=== PATIENT | male | born 1995 | race Two or more races ===

== ENCOUNTER 2018-04-06 20:16 | Emergency (ER) | payer SELFPAY ==
[2018-04-06] MEDS ORDERED: Proparacaine 0.5% Ophth Soln 15 ML Bottle EYERT ONE (20:39)
[2018-04-06] MEDS ORDERED: Fluorescein 0.6 MG Ophth Strip EYERT ONE (20:39)
--- NOTE | 2018-04-06 20:59 | EDM.PDOC ---
ED HPI GENERAL MEDICAL PROBLEM - General Chief Complaint: Eye Problems Stated Complaint: EYE PROBLEM Time Seen by Provider: 04/06/18 20:37 Right Eye Pain Score (Numeric/FACES): 2 - Related Data Allergies Allergy/AdvReac Type Severity Reaction Status Date / Time No Known Allergies Allergy Verified 04/06/18 20:38 Home Meds: Home Meds . [No Known Home Meds] 04/06/18 [History] Past Medical History - Past Health History Medical/Surgical History: Denies Medical/Surgical History Social & Family History - Tobacco Use Smoking Status *Q: Current Every Day Smoker Years of Tobacco use: 1 Packs/Tins Daily: 1 - Caffeine Use Caffeine Use: Reports: Coffee, Energy Drinks, Soda - Recreational Drug Use Recreational Drug Use: No ED ROS GENERAL - Review of Systems Review Of Systems: See Below HEENT: Reports: Eye Pain. Denies: Eye Discharge, Glasses, Vision Change ED EXAM GENERAL W FULL EYE - Physical Exam Exam: See Below Exam Limited By: No Limitations General Appearance: Alert, WD/WN, No Apparent Distress Eye Exam: Right Eye: Normal Fundi, Bilateral Eye: EOMI, PERRL Visual Acuity (R) 20/: 20 Visual Acuity (L) 20/: 20 Eyelids: Right: Normal Appearance, Lid Everted for Exam (normal) Conjunctiva & Sclera: Right: Injected, Bilateral: Normal Appearance, Conjunctival Edema Cornea Exam: Right: Normal Appearance, Examined with Flourescein Extraocular Movements: Bilateral: Intact Pupils: Normal Accommodation Pupillary Size: Bilateral: 5 mm Pupillary Reaction: Bilateral: Brisk Anterior Chamber: Right: Normal Appearance Throat/Mouth: Normal Inspection Respiratory/Chest: Lungs Clear Cardiovascular: Regular Rate, Rhythm Neurological: Alert, Oriented Skin Exam: Warm, Dry ED EYE w/ Add Procedure - Eye Procedure Alcaine Drops Administered: Yes (2 drops with pain relief) Course - Vital Signs Text/Narrative:: 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 This happened about 6:30 tonight. Patient does not wear glasses or contacts. Feels somewhat irritated right eye, no blurry vision or double vision, no headache. No runny nose, no loss of vision. Left eye normal. They irrigated his eye out at the worksite and might of had a small foreign body that was removed. Last Recorded V/S: Last Vital Signs Temp 98.3 F 09/05/18 20:49 Pulse 81 04/06/18 20:49 Resp 20 04/06/18 20:49 BP 125/83 04/06/18 20:49 Pulse Ox 125 H 04/06/18 20:49 - Orders/Labs/Meds Meds: Medications Discontinued Medications Generic Name Dose Route Start Last Admin Trade Name Doretha PRN Reason Stop Dose Admin Fluorescein Sodium 0.6 mg 04/06/18 20:39 04/06/18 20:45 Ful-Magda EYERT 04/06/18 20:40 0.6 mg ONETIME ONE Administration Proparacaine HCl 1 ml 04/06/18 20:39 04/06/18 20:44 Proparacaine 0.5% Ophth Soln EYERT 04/06/18 20:40 1 drop ONETIME ONE Administration - Re-Assessments/Exams Free Text/Narrative Re-Assessment/Exam: 04/06/18 20:58 Fluorescein stain is negative, slit lamp exam is negative, inverted lids and is unremarkable for any acute changes. We'll irrigate the eye with 5 mL Luis lens. Follow-up and return precautions given, no signs of any obvious abnormality. Departure - Departure Time of Disposition: 20:58 Disposition: DC/Tfer W/I Hosp To Swing 61 Condition: Good Clinical Impression: Irritation of right eye - Discharge Information Instructions: Eye Foreign Body, [id number] Referrals: PCP,None [Primary Care Provider] - Additional Instructions: Follow-up later this week if continued to have any eye pain or visual disturbances discharge or problems.
== END 2018-04-06 21:17 | disposition home or self-care (01) ==
LOC: JD.ED 20:16
DX: H57.11 Ocular pain, right eye (principal); H57.8 Other specified disorders of eye and adnexa
CPT/HCPCS: 99283

== ENCOUNTER 2019-03-23 15:05 | Emergency (ER) | payer SELFPAY | END 2019-03-23 15:54 | LOC: JD.ED 15:05 | DX: Z53.21 Procedure and treatment not carried out due to patient leaving prior to being seen by health care provider (principal) ==

== ENCOUNTER 2020-01-15 15:48 | Emergency (ER) | payer SELFPAY ==
--- NOTE | 2020-01-15 16:31 | EDM.PDOC ---
ED HPI GENERAL MEDICAL PROBLEM - General Chief Complaint: General Stated Complaint: DEHYDRATED, HEART RACING Time Seen by Provider: 01/15/20 16:11 Source of Information: Reports: Patient, Family (Mother) History Limitations: Reports: No Limitations - History of Present Illness INITIAL COMMENTS - FREE TEXT/NARRATIVE: Mr. Carter is a very pleasant 24-year-old man with no chronic medical problems and no past surgical history, who now presents the ED stating that he feels dehydrated, with a rapid heart rate, and nausea, after drinking excessive alcohol last night. He has been drinking Gatorade and water, but he has not had an appetite for solid food. No vomiting or diarrhea. He reports having some left-sided chest pain, sharp in character, that comes on momentarily and recurs about every 5 to 10 minutes. He states that he drinks heavily once or twice a week, but does not usually get these types of symptoms. Here in the ED, the patient's initial BP is found to be elevated at 161/91, with a tachycardia of 123 bpm. He is afebrile, saturating 99% on room air. Other than today's symptoms, the patient denies recent fever, chills, sore throat, ear pain, nasal or sinus congestion, cough, dyspnea, chest pain, palpitations, nausea, vomiting, constipation, diarrhea, abdominal pain, urinary symptoms, recent weight gain or weight loss, recent bloody bowel movements or black bowel movements, recent joint aches, headaches, or rashes. The patient does not have a PCP. Left Chest Pain Score (Numeric/FACES): 6 - Related Data Allergies Allergy/AdvReac Type Severity Reaction Status Date / Time No Known Allergies Allergy Verified 04/06/18 20:38 Home Meds: Home Meds Ondansetron [Zofran ODT] 1 tab PO Q8H PRN #10 tab.dis 01/15/20 [Rx] Past Medical History - Past Health History Medical/Surgical History: Denies Medical/Surgical History Social & Family History - Family History Family Medical History: Noncontributory - Tobacco Use Smoking Status *Q: Former Smoker Years of Tobacco use: 8 Packs/Tins Daily: 0.5 Month/Year Tobacco Last Used: Quit December 2017 - Caffeine Use Caffeine Use: Reports: None - Alcohol Use Alcohol Use History: Yes Alcohol Use Frequency: Binges (1-2 x per week) - Recreational Drug Use Recreational Drug Use: Yes Drug Use in Last 12 Months: Yes Recreational Drug Type: Reports: Cocaine (last snorted Oct 2019), Marijuana/ Hashish (last smoked 2017) - Living Situation & Occupation Living situation: Reports: Single, Alone Occupation: Employed ([employer]) ED ROS GENERAL - Review of Systems Review Of Systems: Comprehensive ROS is negative, except as noted in HPI. ED EXAM, GENERAL - Physical Exam Exam: See Below Exam Limited By: No Limitations General Appearance: Alert, WD/WN, No Apparent Distress Eye Exam: Bilateral Eye: EOMI, Normal Inspection Ears: Normal External Exam, Hearing Grossly Normal Nose: Normal Inspection Throat/Mouth: Normal Inspection, Normal Lips, Normal Voice, No Airway Compromise Head: Atraumatic, Normocephalic Neck: Normal Inspection, Full Range of Motion Respiratory/Chest: No Respiratory Distress, Lungs Clear, Normal Breath Sounds, No Accessory Muscle Use Cardiovascular: Normal Peripheral Pulses, No Edema, No Gallop, No JVD, No Murmur , No Rub, Tachycardia (regular) Peripheral Pulses: 3+: Radial (L), Radial (R) GI/Abdominal: Normal Bowel Sounds, Soft, Non-Tender, No Organomegaly, No Distention, No Abnormal Bruit, No Mass (Male) Exam: Deferred Rectal (Males) Exam: Deferred Back Exam: Normal Inspection, Full Range of Motion, NT Extremities: Normal Inspection, Normal Range of Motion, No Pedal Edema, Normal Capillary Refill Neurological: Alert, Oriented, Normal Cognition, No Motor/Sensory Deficits Psychiatric: Normal Affect Skin Exam: Warm, Dry, Intact, Normal Color, No Rash Course - Vital Signs Last Recorded V/S: Last Vital Signs Temp 37.6 C 01/15/20 16:09 Pulse 123 H 01/15/20 16:09 Resp 20 01/15/20 16:09 BP 161/91 H 01/15/20 16:09 Pulse Ox 99 01/15/20 16:09 Orthostatic Blood Pressure [ 151/105 Standing] Orthostatic Blood Pressure [ 150/100 Sitting] Orthostatic Blood Pressure [ 145/76 Supine] - Orders/Labs/Meds Orders: Active Orders 24 hr Category Date Time Status Orthostatic Vital Signs [RC] STAT Care 01/15/20 20:33 Active Peripheral IV Care [RC] . DIRECTED Care 01/15/20 16:33 Active Sodium Chloride 0.9% [Saline Flush] Med 01/15/20 16:33 Active 10 ml FLUSH ASDIRECTED PRN Peripheral IV Insertion Adult [OM.PC] Routine Oth 01/15/20 16:33 Ordered Medication Orders Sodium Chloride (Saline Flush) 10 ml FLUSH ASDIRECTED PRN PRN Reason: Keep Vein Open Last Admin: 01/15/20 16:36 Dose: 10 ml Labs: Laboratory Tests 01/15/20 01/15/20 Range/Units 16:36 16:36 WBC 12.69 H (4.23-9.07) K/mm3 RBC 5.50 (4.63-6.08) M/mm3 Hgb 15.9 (13.7-17.5) gm/dl Hct 45.5 (40.1-51.0) % MCV 82.7 (79.0-92.2) fl MCH 28.9 (25.7-32.2) pg MCHC 34.9 (32.2-35.5) g/dl RDW Std Deviation 38.1 (35.1-43.9) fL Plt Count 261 (163-337) K/mm3 MPV 9.6 (9.4-12.3) fl Neutrophils % (Manual) 76 H (40-60) % Band Neutrophils % 0 (0-10) % Lymphocytes % (Manual) 16 L (20-40) % Atypical Lymphs % 0 % Monocytes % (Manual) 6 (2-10) % Eosinophils % (Manual) 0 L (0.8-7.0) % Basophils % (Manual) 2 H (0.2-1.2) Platelet Estimate Adequate Plt Morphology Comment Normal RBC Morph Comment Normal Sodium 137 (136-145) mEq/L Potassium 3.6 (3.5-5.1) mEq/L Chloride 98 (98-107) mEq/L Carbon Dioxide 22 (21-32) mEq/L Anion Gap 20.6 H (5-15) BUN 10 (7-18) mg/dL Creatinine 1.2 (0.7-1.3) mg/dL Est Cr Clr Drug Dosing 99.35 mL/min Estimated GFR (MDRD) > 60 (>60) mL/min BUN/Creatinine Ratio 8.3 L (14-18) Glucose 133 H (74-106) mg/dL Calcium 9.6 (8.5-10.1) mg/dL Magnesium 1.6 L (1.8-2.4) mg/dl Total Bilirubin 0.6 (0.2-1.0) mg/dL AST 14 L (15-37) U/L ALT 28 (16-63) U/L Alkaline Phosphatase 118 H (46-116) U/L Total Protein 8.2 (6.4-8.2) g/dl Albumin 4.3 (3.4-5.0) g/dl Globulin 3.9 gm/dL Albumin/Globulin Ratio 1.1 (1-2) Meds: Medications Generic Name Dose Route Start Last Admin Trade Name Freq PRN Reason Stop Dose Admin Sodium Chloride 10 ml 01/15/20 16:33 01/15/20 16:36 Saline Flush FLUSH 10 ml ASDIRECTED PRN Administration Keep Vein Open Discontinued Medications Generic Name Dose Route Start Last Admin Trade Name Freq PRN Reason Stop Dose Admin Lactated Ringer's 1,000 mls @ 999 mls/hr 01/15/20 16:33 01/15/20 16:45 Ringers, Lactated IV 01/15/20 17:33 999 mls/hr .BOLUS ONE Administration Magnesium Sulfate 2 gm/ Premix 50 mls @ 25 mls/hr 01/15/20 17:35 01/15/20 18: 05 IV 01/15/20 19:34 25 mls/hr ONETIME ONE Administration Lactated Ringer's 1,000 mls @ 999 mls/hr 01/15/20 17:54 01/15/20 18:05 Ringers, Lactated IV 01/15/20 18:54 999 mls/hr .BOLUS ONE Administration Ondansetron HCl 4 mg 01/15/20 16:33 01/15/20 16:45 Zofran IVPUSH 01/15/20 16:34 4 mg ONETIME ONE Administration - Re-Assessments/Exams Free Text/Narrative Re-Assessment/Exam: 01/15/20 16:33 As above, the patient feels dehydrated and nauseated after drinking an excessive amount of alcohol last night. I have ordered a work-up that includes a CBC, CMP, and magnesium level, to make sure there are no significant electrolyte abnormalities that need to be addressed. Because he is already tachycardic, I do not need to check orthostatics at this time. Instead, I have ordered a liter of LR and IV Zofran. If, after 2 L of IV fluid, the patient is still tachycardic, I will confirm that he is orthostatic, and if so, I will recommend placement into observation. In the meantime, however, the patient can continue to drink the Gatorade that he brought. 01/15/20 17:35 The patient's CBC is remarkable for a WBC count mildly elevated at 12.69, but with 0% bandemia. The remainder of his CBC is unremarkable. His CMP is remarkable for an anion gap elevated at 20.6, but with a bicarbonate normal at 22. His blood glucose is mildly elevated at 133, and his alkaline phosphatase is slightly elevated at 118, with the remainder of his CMP being unremarkable. His magnesium is depressed at 1.6. Based on the above, I have ordered a 2 g Mg-rider. 01/15/20 17:55 Notified by Lucie REBOLLEDO that the first liter of IV fluid has finished infusing. 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 I have ordered a second of IV fluid. 01/15/20 20:33 Notified by Lucie REBOLLEDO that the second liter of LR has finished infusing, along with the Mg-rider. While his heart rate has improved since his initial presentation, it is still about 110 bpm. I have ordered orthostatics. 01/15/20 21:14 Although the patient is tachycardic, he is not orthostatic. 01/15/20 21:19 Test results discussed with the patient and his girlfriend (no present - his mother is no longer here). I offered to place the patient into observation for telemetry monitoring and additional IV fluid hydration, however, the patient would prefer to go home. I will submit a prescription for Zofran, with the recommendation that he continue to drink as much Gatorade or Powerade as he can tolerate. Departure - Departure Time of Disposition: 21:20 Disposition: Home, Self-Care 01 Condition: Good Clinical Impression: Excessive consumption of ethanol, Tachycardia, Hypomagnesemia - Discharge Information *PRESCRIPTION DRUG MONITORING PROGRAM REVIEWED*: Not Applicable *COPY OF PRESCRIPTION DRUG MONITORING REPORT IN PATIENT JAZZY: Not Applicable Referrals: PCP,None [Primary Care Provider] - Forms: ED Department Discharge Additional Instructions: You were seen in the emergency room for feeling dehydrated with an elevated heart rate and nausea, after excessive drinking last night. Work-up in the ER included blood work and positional blood pressure checks. Your blood work found your magnesium level to be low at 1.6. You were given IV replacement magnesium. The remainder of your blood work was unremarkable. You were given a total of 2 L of IV fluid while in the ER. Your heart rate has improved, although you are still somewhat tachycardic, likely as a result of alcohol withdrawal. Placement into observation for telemetry monitoring and additional IV fluid was offered, but declined. You have chosen to go home. Description for the anti-nausea medicine Zofran has been sent to the [facility] located in the [employer]cery store. Dissolve 1 tablet of Zofran on your tongue up to every 8 hours, as needed for nausea/vomiting. We recommend that you drink as much Gatorade or Powerade as you can tolerate. You may eat a bland diet, if hungry. If any other problems, please do not hesitate to return to the ER. Sepsis Event Note (ED) - Evaluation Sepsis Screening Result: No Definite Risk - Focused Exam Vital Signs: Vital Signs Temp Pulse Resp BP Pulse Ox 01/15/20 16:09 37.6 C 123 H 20 161/91 H 99 - My Orders Last 24 Hours: My Active Orders 01/15/20 16:33 Peripheral IV Care [RC] . DIRECTED Sodium Chloride 0.9% [Saline Flush] 10 ml FLUSH ASDIRECTED PRN Peripheral IV Insertion Adult [OM.PC] Routine 01/15/20 20:33 Orthostatic Vital Signs [RC] STAT - Assessment/Plan Last 24 Hours: My Active Orders 01/15/20 16:33 Peripheral IV Care [RC] . DIRECTED Sodium Chloride 0.9% [Saline Flush] 10 ml FLUSH ASDIRECTED PRN Peripheral IV Insertion Adult [OM.PC] Routine 01/15/20 20:33 Orthostatic Vital Signs [RC] STAT
[2020-01-15] MEDS ORDERED: Lactated Ringers 1,000 ML IV ONE ×2 (16:33→17:54)
[2020-01-15] MEDS ORDERED: Ondansetron 4 MG/2 ML SDV IVPUSH ONE (16:33)
[2020-01-15] MEDS ORDERED: Sodium Chloride 0.9% 10 ML Syringe FLUSH PRN (16:33)
[2020-01-15] MEDS ORDERED: Magnesium Sulfate/Water 2 GM in Premix Bag 1 BAG IV ONE (17:35)
== END 2020-01-15 21:34 | disposition home or self-care (01) ==
LOC: JD.ED 15:48
DX: E83.42 Hypomagnesemia (principal); R00.0 Tachycardia, unspecified; F10.10 Alcohol abuse, uncomplicated; Z87.891 Personal history of nicotine dependence
CPT/HCPCS: 36415; 80053; 83735; 85007; 85027; 96361; 96365; 96366; 96375; 99284; J2405; J3475; J7120